=== PATIENT | male | born 1995 | race Caucasian/White ===

== ENCOUNTER 2017-01-03 16:56 | Emergency (ER) | payer SELFPAY ==
--- NOTE | 2017-01-03 17:17 | ER Document Report ---
ED Medical Screen (RME) - General Stated Complaint: SORE THROAT, COUGH Time seen by provider: 17:16 Mode of Arrival: Ambulatory Information source: Patient Notes: 21-year-old male presents to ED for cough and sore throat 3 days. He denies any runny nose nasal congestion or fever. He does smoke. I have greeted and performed a rapid initial assessment of this patient. A comprehensive ED assessment and evaluation of the patient, analysis of test results and completion of medical decision making process will be conducted by an additional ED providers. TRAVEL OUTSIDE OF THE [place] IN LAST 30 DAYS: No - Related Data Allergies/Adverse Reactions: No Known Allergies Allergy (Verified 01/03/17 17:16) Past Medical History Psychiatric Medical History: Reports: Hx Attention Deficit Hyperactivity Disorder - Immunizations Immunizations up to date: Yes Hx Diphtheria, Pertussis, Tetanus Vaccination: Yes Physical Exam - Vital signs Vitals: Temp Pulse Resp BP Pulse Ox 98.9 F 90 18 134/78 H 98 01/03/17 17:13 01/03/17 17:13 01/03/17 17:13 01/03/17 17:13 01/03/17 17:13 Course - Vital Signs Vital signs: Temp Pulse Resp BP Pulse Ox 98.9 F 90 18 134/78 H 98 01/03/17 17:13 01/03/17 17:13 01/03/17 17:13 01/03/17 17:13 01/03/17 17:13
--- NOTE | 2017-01-03 18:13 | ER Document Report ---
ED General - General Chief Complaint: Sore Throat Stated Complaint: SORE THROAT, COUGH Mode of Arrival: Ambulatory Information source: Patient Notes: 21-year-old male presents with three-day duration of sore throat. Patient states he has strep throat, nose symptoms. Patient had does not want the last time he actually had strep throat. Denies any difficulty breathing swallowing or any other concerns. Denies any fevers TRAVEL OUTSIDE OF THE [place] IN LAST 30 DAYS: No - HPI Onset: Other - Three-day duration Onset/Duration: Persistent Quality of pain: Achy Severity: Mild Pain Level: 1 Associated symptoms: Sore throat Exacerbated by: Denies Relieved by: Denies Similar symptoms previously: No Recently seen / treated by doctor: No - Related Data Allergies/Adverse Reactions: No Known Allergies Allergy (Verified 01/03/17 17:16) Past Medical History - General Information source: Patient - Social History Smoking Status: Current Every Day Smoker Cigarette use (# per day): Yes Chew tobacco use (# tins/day): No Smoking Education Provided: No Frequency of alcohol use: None Drug Abuse: None Family History: Reviewed & Not Pertinent Patient has suicidal ideation: No Patient has homicidal ideation: No Renal/ Medical History: Denies: Hx Peritoneal Dialysis Psychiatric Medical History: Reports: Hx Attention Deficit Hyperactivity Disorder - Immunizations Immunizations up to date: Yes Hx Diphtheria, Pertussis, Tetanus Vaccination: Yes Review of Systems - Review of Systems Notes: REVIEW OF SYSTEMS: CONSTITUTIONAL : Denies fever, chills, or sweats. Denies recent illness. EENT: Sore throat CARDIOVASCULAR: Denies chest pain. Denies palpitations or racing or irregular heart beat. Denies ankle edema. RESPIRATORY: Denies cough, cold, or chest congestion. Denies shortness of breath, difficulty breathing, or wheezing. GASTROINTESTINAL: Denies abdominal pain or distention. Denies nausea, vomiting , or diarrhea. Denies blood in vomitus, stools, or per rectum. Denies black, tarry stools. Denies constipation. GENITOURINARY: Denies difficulty urinating, painful urination, burning, frequency, blood in urine, or discharge. MUSCULOSKELETAL: Denies back or neck pain or stiffness. Denies joint pain or swelling. SKIN: Denies rash, lesions or sores. HEMATOLOGIC : Denies easy bruising or bleeding. LYMPHATIC: Denies swollen, enlarged glands. NEUROLOGICAL: Denies confusion or altered mental status. Denies passing out or loss of consciousness. Denies dizziness or lightheadedness. Denies headache. Denies weakness or paralysis or loss of use of either side. Denies problems with gait or speech. Denies sensory loss, numbness, or tingling. Denies seizures. PSYCHIATRIC: Denies anxiety or stress. Denies depression, suicidal ideation, or homicidal ideation. ALL OTHER SYSTEMS REVIEWED AND NEGATIVE. Dictation was performed using [employer] voice recognition software PHYSICAL EXAMINATION: GENERAL: Well-appearing, well-nourished and in no acute distress. HEAD: Atraumatic, normocephalic. EYES: Pupils equal round extraocular movements intact, conjunctiva are normal. ENT: Nares patent bilateral tonsillar enlargement +1 with exudates NECK: Normal range of motion LUNGS: No respiratory distress Musculoskeletal: Normal range of motion NEUROLOGICAL: Normal speech, normal gait. PSYCH: Normal mood, normal affect. SKIN: Warm, Dry, normal turgor, no rashes or lesions noted. Physical Exam - Vital signs Vitals: Temp Pulse Resp BP Pulse Ox 98.9 F 90 18 134/78 H 98 01/03/17 17:13 01/03/17 17:13 01/03/17 17:13 01/03/17 17:13 01/03/17 17:13 Course - Re-evaluation Re-evalutation: 01/03/17 18:35 Patient was positive for strep, he was started on antibiotics. Otherwise he has no concerns or questions. Patient is stable for discharge After performing a Medical Screening Examination, I estimate there is LOW risk for ACUTE CORONARY SYNDROME, RESPIRATORY FAILURE, SEPSIS OR MENINGITIS, thus I consider the discharge disposition reasonable. The patient and I have discussed the diagnosis and risks, and we agree with discharging home with close follow- up. We also discussed returning to the Emergency Department immediately if new or worsening symptoms occur. We have discussed the symptoms which are most concerning (e.g., changing or worsening pain, trouble swallowing or breathing, neck stiffness, fever) that necessitate immediate return. - Vital Signs Vital signs: Temp Pulse Resp BP Pulse Ox 98.9 F 90 18 134/78 H 98 01/03/17 17:13 01/03/17 17:13 01/03/17 17:13 01/03/17 17:13 01/03/17 17:13 Discharge - Discharge Clinical Impression: Strep pharyngitis, Sore throat Condition: Stable Disposition: HOME, SELF-CARE Instructions: Strep Throat ([facility]) Additional Instructions: Follow up with your physician tomorrow for further care or return to the ED IMMEDIATELY if symptoms worsen or new concerns occur Prescriptions: Amoxicillin 875 mg PO BID #20 tablet
[2017-01-03 20:07] VITALS: BP 138/89
== END 2017-01-03 18:25 | disposition home or self-care (01) ==
LOC: ER 16:56
DX: J02.0 Streptococcal pharyngitis (principal); J02.9 Acute pharyngitis, unspecified; R05 Cough; F17.210 Nicotine dependence, cigarettes, uncomplicated
CPT/HCPCS: 87880; 99283

== ENCOUNTER 2017-05-30 15:23 | Emergency (ER) | payer SELFPAY ==
--- NOTE | 2017-05-30 16:46 | ER Document Report ---
HPI - HPI Pain Level: 3 Notes: Patient is a 21-year-old male who presents the ED complaining of a rash to his left axilla and right groin 3-4 days. Patient states that he does have itching and pain to the rash. He has been using [id number] remedies without any relief. Patient states that he does work at [employer] and they have no AC and he has been sweating a lot. He denies any insect bite or changes in food or detergents. He denies any drug allergies or significant past medical history. Patient admits to smoking but denies any other illicit drug use. He has not been taking any PO medications. Patient has not noticed any abscess or purulent discharge. Denies any headache, fever, URI, sore throat , chest pain, palpitations, syncope, cough, shortness of breath, wheeze, dyspnea , abdominal pain, nausea/vomiting/diarrhea, urinary retention, dysuria, hematuria. - ROS Notes: REVIEW OF SYSTEMS: CONSTITUTIONAL : Denies fever, chills, or sweats. Denies recent illness. EENT: Denies eye, ear, throat, or mouth pain or symptoms. Denies nasal or sinus congestion or discharge. Denies throat, tongue, or mouth swelling or difficulty swallowing. CARDIOVASCULAR: Denies chest pain. Denies palpitations or racing or irregular heart beat. Denies ankle edema. RESPIRATORY: Denies cough, cold, or chest congestion. Denies shortness of breath, difficulty breathing, or wheezing. GASTROINTESTINAL: Denies abdominal pain or distention. Denies nausea, vomiting , or diarrhea. Denies blood in vomitus, stools, or per rectum. Denies black, tarry stools. Denies constipation. GENITOURINARY: Denies difficulty urinating, painful urination, burning, frequency, blood in urine, or discharge. MUSCULOSKELETAL: Denies back or neck pain or stiffness. Denies joint pain or swelling. SKIN: see hpi NEUROLOGICAL: Denies confusion or altered mental status. Denies passing out or loss of consciousness. Denies dizziness or lightheadedness. Denies headache. Denies weakness or paralysis or loss of use of either side. Denies problems with gait or speech. Denies sensory loss, numbness, or tingling. ALL OTHER SYSTEMS REVIEWED AND NEGATIVE. Dictation was performed using [employer] recognition software - DERM Skin Color: Normal Past Medical History - Social History Smoking Status: Current Every Day Smoker Chew tobacco use (# tins/day): No Frequency of alcohol use: Rare Drug Abuse: None Family History: Reviewed & Not Pertinent Patient has suicidal ideation: No Patient has homicidal ideation: No Renal/ Medical History: Denies: Hx Peritoneal Dialysis Psychiatric Medical History: Reports: Hx Attention Deficit Hyperactivity Disorder - Immunizations Immunizations up to date: Yes Hx Diphtheria, Pertussis, Tetanus Vaccination: Yes Vertical Provider Document - CONSTITUTIONAL Agree With Documented VS: Yes Notes: PHYSICAL EXAMINATION: GENERAL: Well-appearing, well-nourished and in no acute distress. NECK: Normal range of motion, supple without lymphadenopathy LUNGS: Breath sounds clear to auscultation bilaterally and equal. No wheezes rales or rhonchi. HEART: Regular rate and rhythm without murmurs, rubs, gallops. Musculoskeletal: FROM to passive/active. Strength 5+/5. Extremities: No cyanosis, clubbing, or edema b/l. Peripheral pulses 2+. Capillary refill less than 3 seconds. NEUROLOGICAL: Cranial nerves grossly intact. Normal speech, normal gait. Normal sensory, motor exams PSYCH: Normal mood, normal affect. SKIN: erythemic macular rash to the left axilla and right groin with satellite lesions. A few of the lesions are scabbed from scratching with very mild probable superimposed bacterial infection. No abscess or induration. No purulent discharge. No streaks. Non-tender. No prox lymphadenopathy. - INFECTION CONTROL TRAVEL OUTSIDE OF THE [place] IN LAST 30 DAYS: No - RESPIRATORY O2 Sat by Pulse Oximetry: 97 Course - Re-evaluation Re-evalutation: 05/30/17 16:50 Patient is an afebrile, well-hydrated, 21-year-old male who presents the ED with suspected tinea infection to his left axilla and right groin with possible mild superimposed bacterial infection. Vitals are stable. PE otherwise unremarkable at this time. Low suspicion for any emergent skin rash, sepsis, or other urgent/emergent systemic condition at this time. Patient is aware that his condition can change from initial presentation and he needs to monitor symptoms closely and seek medical attention if any acute changes. I will send him home with a prescription for clotrimazole and Keflex. Recheck/establish with PCM this week. Consider consult with dermatology for ongoing/worsening symptoms. Return to the ED with any worsening/concerning symptoms otherwise as reviewed discharge. Patient is in agreement. - Vital Signs Vital signs: Temp Pulse Resp BP Pulse Ox 98.8 F 75 18 168/86 H 97 05/30/17 15:55 05/30/17 15:55 05/30/17 15:55 05/30/17 15:55 05/30/17 15:55 Discharge - Discharge Clinical Impression: Tinea cruris Condition: Stable Disposition: HOME, SELF-CARE Additional Instructions: Keep skin clean and dry Use cream as directed for 1-2 weeks Take medication as directed Avoid deodorant to the left axilla until rash resolves Monitor for any worsening symptoms Recheck with PCM in 2-3 days Consider consult with dermatology for ongoing/worsening symptoms Return to the ED with any worsening symptoms and/or development of fever, headache, chest pain, palpitations, syncope, shortness of breath, trouble breathing, abdominal pain, n/v/d, blood in stool/urine, loss of control of bowel /bladder, dysuria, joint pains, or other worsening symptoms that are concerning to you. Prescriptions: Cephalexin Monohydrate [Keflex 500 mg Capsule] 500 mg PO TID #21 capsule Clotrimazole [Athletic Foot Cream] 1 applic TP BID #30 gm Forms: Elevated Blood Pressure, Smoking Cessation Education Referrals: FLO AVALOS DO [ACTIVE STAFF] - Follow up in 1 week [facility] [Provider Group[facility] - Follow up as needed [facility] [Provider Group] - Follow up as needed
[2017-05-30 17:01] VITALS: BP 115/74
== END 2017-05-30 16:55 | disposition home or self-care (01) ==
LOC: ER 15:23
DX: B35.6 Tinea cruris (principal); R21 Rash and other nonspecific skin eruption; F17.200 Nicotine dependence, unspecified, uncomplicated
CPT/HCPCS: 99282